=== PATIENT | female | born 1985 | race Caucasian/White ===

== ENCOUNTER 2018-06-22 16:51 | Emergency (ER) | payer OTHER ==
[~2018-06-22] VITALS: Ht 167.6 cm; Wt 68.0 kg
[2018-06-22 16:54] VITALS: BP 129/89
[2018-06-22 18:47] LABS: BASOPHILS # (AUTO) 0.1 K/uL (0.00-0.22); BASOPHILS % (AUTO) 0.5 % (0.0-2.0); EOSINOPHILS # (AUTO) 0.2 K/uL (0-0.4); EOSINOPHILS % (AUTO) 1.2 % (0.0-4.0); HEMATOCRIT 47.9 % (36-48); HEMOGLOBIN 16.1 g/dL (12.0-16.0); LYMPHOCYTES # (AUTO) 2.8 K/uL (2.5-16.5); LYMPHOCYTES % (AUTO) 20.7 % (20.5-51.1); MEAN CORPUSCULAR HEMOGLOBIN 33 pg (27-31); MEAN CORPUSCULAR HGB CONC 34 g/dL (33-37); MEAN CORPUSCULAR VOLUME 96.8 fL (80-94); MONOCYTES # (AUTO) 0.5 K/uL (0.8-1.0); MONOCYTES % (AUTO) 3.8 % (1.7-9.3); NEUTROPHILS # (AUTO) 10.2 K/uL (1.8-7.7); NEUTROPHILS % (AUTO) 73.8 % (42.2-75.2); PLATELET COUNT (AUTO) 293 K/uL (140-450); RED BLOOD CELL COUNT(AUTO) 4.95 MIL/uL (4.20-5.40); RED CELL DISTRIBUTION WIDTH 14.9 % (11.6-13.7); WHITE BLOOD COUNT (AUTO) 13.7 K/uL (4.8-10.8)
[2018-06-22 18:50] LABS: APPEARANCE,URINE CLEAR (CLEAR); BILIRUBIN,URINE NEGATIVE (NEGATIVE); BLOOD, URINE NEGATIVE (NEGATIVE); COLOR,URINE YELLOW (YELLOW); LEUKOCYTE ESTERASE ,URINE NEGATIVE (NEGATIVE); NITRITE, URINE NEGATIVE (NEGATIVE); PH,URINE 5.5 (5.0-9.0); UGLUCOSE NEGATIVE (NEGATIVE)
[2018-06-22 18:56] LABS: BARBITURATE, URINE NEG. ng/ml (NEG <=200); BENZODIAZEPINE, URINE NEG. ng/mL (NEG <=200); CANNABINOID, URINE POS. ng/mL (NEG <=50); COCAINE, URINE NEG. ng/mL (NEG <=300); OPIATE, URINE NEG. ng/mL (NEG <=2000); PHENCYCLIDINE SCREEN,URINE NEG. ng/mL (NEG <=25)
[2018-06-22 19:15] LABS: ALBUMIN 4.2 g/dL (3.4-5.0); ASPARTATE AMINOTRANSFERASE 18 U/L (15-37); CHLORIDE 107 mmol/L (98-107); GFR ARICAN-AMERICAN 83 mL/min (>90); GLUCOSE 93 mg/dL (74-106); POTASSIUM 3.3 mmol/L (3.5-5.1); SALICYLATE 3.9 mg/dL (2.8-20.0); SODIUM SERUM 142 mmol/L (136-145); TOTAL BILIRUBIN 0.3 mg/dL (0.0-1.0); UREA NITROGEN, BLOOD 10 mg/dL (7-18)
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
[2018-06-22 19:42] LABS: ANION GAP 12.9 (8-16); CARBON DIOXIDE 25.4 mmol/L (21-32)
[2018-06-22 19:53] LABS: ACETAMINOPHEN < 0.5 ug/ml (10-30)
--- NOTE | 2018-06-22 19:55 | NUR ---
Dr. Vogt evaluating patient at bedside.
[2018-06-22] MEDS ORDERED: NACL 0.9% 1,000 ML IV ONE (20:15)
--- NOTE | 2018-06-22 20:15 | NUR ---
PT REFUSED IV FLUIDS. ER MD MADE AWARE. NO FURTHER ORDERS PROVIDED.
[2018-06-22 20:34] VITALS: BP 125/82
--- NOTE | 2018-06-22 20:34 | NUR ---
Patient presented to facility under the influence of Alcohol. Patient is currently ambulatory with steady gait, able to walk unassisted. Positive gag reflex. Alert and oriented. Is not driving self for discharge out of facility. Patient discharged with v/s stable. Written and verbal after care instructions given and explained. Patient verbalized understanding. Ambulatory with steady gait. All questions addressed prior to discharge. Advised to follow up with PMD.
== END 2018-06-22 20:34 | disposition home or self-care (01) ==
LOC: MED 16:51
DX: F10.129 Alcohol abuse with intoxication, unspecified (principal); R51 Headache; R55 Syncope and collapse; Y90.8 Blood alcohol level of 240 mg/100 ml or more
CPT/HCPCS: 36415; 80053; 80305; 81003; 81025; 82550; 85025; 93005; 99285; G0480; G0482

== ENCOUNTER 2020-11-16 19:46 | Emergency (ER) | payer OTHER ==
[~2020-11-16] VITALS: Ht 167.6 cm; Wt 102.5 kg
[2020-11-16 19:46] VITALS: BP 116/91
--- NOTE | 2020-11-16 19:46 | NUR ---
Dr. Garcia examining patient.
--- NOTE | 2020-11-16 19:46 | NUR ---
PT ANDRAE CURIELS. TAKEN TO BED 4
--- NOTE | 2020-11-16 19:50 | NUR ---
Pt medicated with Haldol 2.5ml IM per MD order. VSS.
[2020-11-16] MEDS ORDERED: NACL 0.9% 1,000 ML IV ONE (19:55)
[2020-11-16] MEDS ORDERED: HALOPERIDOL IM 5 MG/ML VIAL IVP ONE (20:05)
[2020-11-16] MEDS ORDERED: HALOPERIDOL IM 5 MG/ML VIAL ONE (20:06)
--- NOTE | 2020-11-16 20:06 | NUR ---
ekg performed at bedside. ekg reads sinus tachycardia @ 102
[2020-11-16 20:19] LABS: BASOPHILS # (AUTO) 0.1 K/uL (0.00-0.22); BASOPHILS % (AUTO) 0.8 % (0.0-2.0); EOSINOPHILS # (AUTO) 0.1 K/uL (0-0.4); EOSINOPHILS % (AUTO) 1.1 % (0.0-4.0); HEMATOCRIT 42.6 % (36-48); HEMOGLOBIN 14.4 g/dL (12.0-16.0); LYMPHOCYTES # (AUTO) 2.6 K/uL (2.5-16.5); LYMPHOCYTES % (AUTO) 31.5 % (20.5-51.1); MEAN CORPUSCULAR HEMOGLOBIN 33 pg (27-31); MEAN CORPUSCULAR HGB CONC 34 g/dL (33-37); MEAN CORPUSCULAR VOLUME 96.2 fL (80-94); MONOCYTES # (AUTO) 0.5 K/uL (0.8-1.0); MONOCYTES % (AUTO) 6.2 % (1.7-9.3); NEUTROPHILS # (AUTO) 4.9 K/uL (1.8-7.7); NEUTROPHILS % (AUTO) 60.4 % (42.2-75.2); PLATELET COUNT (AUTO) 264 K/uL (140-450); RED BLOOD CELL COUNT(AUTO) 4.43 MIL/uL (4.20-5.40); WHITE BLOOD COUNT (AUTO) 8.2 K/uL (4.8-10.8)
--- NOTE | 2020-11-16 20:27 | NUR ---
X-Ray at bedside.
[2020-11-16 20:39] LABS: ALBUMIN 3.7 g/dL (3.4-5.0); ANION GAP 15.6 (8-16); ASPARTATE AMINOTRANSFERASE 15 U/L (15-37); CARBON DIOXIDE 26.3 mmol/L (21-32); CHLORIDE 106 mmol/L (98-107); CREATININE 0.8 mg/dL (0.6-1.3); GFR ARICAN-AMERICAN 106 mL/min (>90); GLUCOSE 105 mg/dL (74-106); LIPASE 118 U/L (73-393); POTASSIUM 3.9 mmol/L (3.5-5.1); SODIUM SERUM 144 mmol/L (136-145); TOTAL BILIRUBIN 0.1 mg/dL (0.0-1.0); UREA NITROGEN, BLOOD 8 mg/dL (7-18)
[2020-11-16 20:41] LABS: SALICYLATE < 2.8 mg/dL (2.8-20.0)
--- NOTE | 2020-11-16 20:49 | NUR ---
Carlyn aguilar in [facility] - 11/16/20 at 2052 by DIANNE PT TAKEN BY CT
--- NOTE | 2020-11-16 20:50 | NUR ---
Pt biba d/t alcohol intoxication. Pt noted crying with episodes of hyperventilating. Pt able to answer yes/no questions, say her name, but unable to answer further questions. When asked, "Do you know why you are in the hospital?" pt states "yes", but unable to say why. Per EMS, pt went through recent divorce and has been drinking a lot of alcohol daily. Pt admits to alcohol use. VSS. Pt seen attempting to get OOB, instructed pt to stay in bed. In line of sight of nursing station.
--- NOTE | 2020-11-16 20:52 | NUR ---
PT RETURN FROM RADIOLOGY
[2020-11-16 20:59] LABS: ACETAMINOPHEN < 0.5 ug/ml (10-30)
[2020-11-16 22:22] LABS: APPEARANCE,URINE HAZY (CLEAR); BILIRUBIN,URINE NEGATIVE (NEGATIVE); BLOOD, URINE NEGATIVE (NEGATIVE); COLOR,URINE YELLOW (YELLOW); LEUKOCYTE ESTERASE ,URINE 3+ (NEGATIVE); NITRITE, URINE NEGATIVE (NEGATIVE); PH,URINE 5.5 (5.0-9.0); UGLUCOSE NEGATIVE (NEGATIVE)
[2020-11-16 22:39] LABS: RBC,URINE 0-5 /HPF (0-5)
[2020-11-16 22:47] VITALS: BP 130/68
[2020-11-16 22:53] LABS: BARBITURATE, URINE NEGATIVE ng/ml (NEG <=200); BENZODIAZEPINE, URINE NEGATIVE ng/mL (NEG <=200); CANNABINOID, URINE NEGATIVE ng/mL (NEG <=50); COCAINE, URINE NEGATIVE ng/mL (NEG <=300); OPIATE, URINE NEGATIVE ng/mL (NEG <=2000); PHENCYCLIDINE SCREEN,URINE NEGATIVE ng/mL (NEG <=25)
--- NOTE | 2020-11-16 22:53 | NUR ---
Pt resting in bed, breathing even and unlabored. Pt noted more coherent, able to carry on conversation. VSS, needs met.
--- NOTE | 2020-11-17 00:09 | NUR ---
PT AMBULATORY TO RESTROOM UNASSISTED. STEADT GAIT OBSERVED
--- NOTE | 2020-11-17 01:46 | NUR ---
Dr. Vila examining patient.
--- NOTE | 2020-11-17 01:50 | NUR ---
PT UP FOR DISCHARGE. PT STATES SHE WOULD CALL [facility] FOR A RIDE HOME. PT [id number]. AMBULATORY WITH STEADY GAIT.
--- NOTE | 2020-11-17 01:59 | NUR ---
Patient discharged with v/s stable. Written and verbal after care instructions given and explained. Patient verbalized understanding. Ambulatory with steady gait. All questions addressed prior to discharge. Advised to follow up with PMD.
== END 2020-11-17 01:59 | disposition home or self-care (01) ==
LOC: MED 19:46
DX: F10.129 Alcohol abuse with intoxication, unspecified (principal); F32.9 Major depressive disorder, single episode, unspecified; Y90.9 Presence of alcohol in blood, level not specified
CPT/HCPCS: 36415; 70450; 71045; 80053; 80305; 81001; 81025; 82550; 83690; 84484; 84702; 85025; 87086; 93005; 96360; 96372; 99285; G0480; G0482; J1630; J7030; 96361; 96374